=== PATIENT | female | born 1995 | race Caucasian/White ===

== ENCOUNTER 2018-02-26 13:03 | Emergency (ER) | payer OTHER ==
[~2018-02-26] VITALS: Ht 160 cm; Wt 61.0 kg
[2018-02-26] MEDS ORDERED: IBUPROFEN 600MG TABLET PO ONE (14:00)
[2018-02-26 14:50] VITALS: BP 119/76
== END 2018-02-26 18:55 | disposition home or self-care (01) ==
LOC: ER 13:03
DX: S93.402A Sprain of unspecified ligament of left ankle, initial encounter (principal); W18.2XXA Fall in (into) shower or empty bathtub, initial encounter; Y93.E1 Activity, personal bathing and showering; Y92.89 Other specified places as the place of occurrence of the external cause; Y99.8 Other external cause status
CPT/HCPCS: 73610; 81025; 99284

== ENCOUNTER 2021-12-01 13:36 | Emergency (ER) | payer BC, OTHER ==
[~2021-12-01] VITALS: Ht 157.5 cm; Wt 61.0 kg
[2021-12-01 13:50] VITALS: BP 138/57
[2021-12-01] MEDS ORDERED: HYDROCODONE/ACETAMINOPHEN 5/325MG TABLET PO ONE (14:45)
[2021-12-01] MEDS ORDERED: HYDR-4001 MT (17:41)
== END 2021-12-01 17:56 | disposition home or self-care (01) ==
LOC: ER 13:36
DX: S06.890A Other specified intracranial injury without loss of consciousness, initial encounter (principal); S00.03XA Contusion of scalp, initial encounter; S62.397A Other fracture of fifth metacarpal bone, left hand, initial encounter for closed fracture; V43.62XA Car passenger injured in collision with other type car in traffic accident, initial encounter; Y93.89 Activity, other specified; Y92.488 Other paved roadways as the place of occurrence of the external cause
CPT/HCPCS: 29125; 73130; 81025; 99284

== ENCOUNTER 2021-12-04 22:40 | Emergency (ER) | payer BC ==
[~2021-12-04] VITALS: Ht 157.5 cm; Wt 61.0 kg
[~2021-12-04 22:40] MED LIST: HYDR-4001 MT
[2021-12-04 22:51] VITALS: BP 121/64
[2021-12-05] MEDS ORDERED: IBUP-2029 MT (00:30)
[2021-12-05] MEDS ORDERED: HYDR-4001 MT (00:30)
== END 2021-12-05 00:48 | disposition home or self-care (01) ==
LOC: ER 22:40
DX: Z76.0 Encounter for issue of repeat prescription (principal)
CPT/HCPCS: 99281; 99283

== ENCOUNTER 2022-08-31 23:11 | Emergency (ER) | payer BC ==
[~2022-08-31] VITALS: Ht 160 cm; Wt 62.0 kg
[~2022-08-31 23:11] MED LIST changes: +IBUP-2029 MT
[2022-08-31 23:30] VITALS: BP 138/94
[2022-09-01] MEDS ORDERED: BACITRACIN ZINC OINT UDPKT TOP ONE (05:45)
[2022-09-01] MEDS ORDERED: LIDOCAINE HCL/EPINEPHRINE 1%-EPI 1:100,000 20 ML VIAL INFIL ONE (05:45)
[2022-09-02] MEDS ORDERED: CEPH500C2 PO (18:29)
== END 2022-09-01 06:50 | disposition home or self-care (01) ==
LOC: ER 23:43
DX: S00.03XA Contusion of scalp, initial encounter (principal); X58.XXXA Exposure to other specified factors, initial encounter; Y93.89 Activity, other specified; Y92.89 Other specified places as the place of occurrence of the external cause; Y99.8 Other external cause status; Z79.899 Other long term (current) drug therapy
CPT/HCPCS: 10060; 99282; J3490; Z7610

== ENCOUNTER 2022-09-02 16:59 | Emergency (ER) | payer BC ==
[~2022-09-02] VITALS: Ht 160 cm; Wt 61.0 kg
[2022-09-02 17:05] VITALS: BP 128/82
[2022-09-02] MEDS ORDERED: CEPH500C2 PO (18:29)
== END 2022-09-02 18:41 | disposition home or self-care (01) ==
LOC: ER 16:59
DX: Z48.00 Encounter for change or removal of nonsurgical wound dressing (principal)
CPT/HCPCS: 99283